=== PATIENT | female | born 1950 | race Caucasian/White ===

== ENCOUNTER → 2020-10-31 | Outpatient (CLI) | payer BC ==
--- NOTE | 2020-11-01 12:51 | RAD ---
DATE: 10/31/2020 3:30 PM EXAM: DIGITAL SCREEN BILAT W/CAD HISTORY: Screening COMPARISON: 07/30/2017 Bilateral full field craniocaudal and mediolateral oblique images were obtained using digital technique. This study was interpreted with the benefit of Computerized Aided Detection (CAD). FINDINGS: Breast Density: DENSE The breast Parenchyma is dense, which could reduce the sensitivity of mammography. Breast parenchyma level density D. No suspicious masses, microcalcifications or architectural distortion is present to suggest malignancy in either breast. The visualized axillae are unremarkable. IMPRESSION: No mammographic evidence of malignancy. BI-RADS CATEGORY: 1 NEGATIVE RECOMMENDED FOLLOW-UP: 12M 12 MONTH FOLLOW-UP Annual screening mammography is recommended, unless clinically indicated sooner based on symptoms or change in physical exam. PQRS compliance statement: Patient information was entered into a reminder system with a target due date for the next mammogram. Mammography is a sensitive method for finding small breast cancers, but it does not detect them all and is not a substitute for careful clinical examination. A negative mammogram does not negate a clinically suspicious finding and should not result in delay in biopsying a clinically suspicious abnormality. "Our facility is accredited by the [employer] Mammography Program."
== END ==
LOC: MAMMO 15:22
PROVIDERS: ATTEND Nurse Practitioner Adult Health
DX: Z12.31 Encounter for screening mammogram for malignant neoplasm of breast (principal)
CPT/HCPCS: 77067

== ENCOUNTER 2021-10-03 06:44 | Emergency (ER) | payer BC, MEDICARE ==
[~2021-10-03] VITALS: Ht 198.1 cm; Wt 65.4 kg
--- NOTE | 2021-10-03 07:17 | PHYS DOC ---
Past History Past Surgical History: Cholecystectomy Alcohol Use: Occasionally General Adult EDM: Chief Complaint: BACK PAIN - NO INJURY HPI: HPI: Patient is a 71-year-old female coming in for left thoracic back pain. Patient states the pain radiates through to the front. Patient states the pain started 1.5 days ago. Denies any falls or injuries, does state that she had tried to restrain her 6-year-old granddaughter when she was acting up 2 days ago but the pain did not start immediately after that. Patient states she was in the couch and the pain started. He was this morning because she had difficulty sleeping secondary to pain. Denies any other symptoms. Denies any history of kidney stones or infections. No recent illness, no fevers or chills. Tried taking Aleve for the pain without much improvement. Review of Systems: Review of Systems: All other systems within normal limits except for as noted in the HPI Allergies: Allergies: Allergies Coded Allergies Type Severity Reaction Last Updated Verified No Known Drug Allergies 10/03/21 No Physical Exam: PE: Constitutional: Well developed, well nourished, no acute distress, non-toxic appearance. [] HENT: Normocephalic, atraumatic, bilateral external ears normal, nose normal. [] Eyes: PERRLA, conjunctiva normal, no discharge. [] Neck: No rigidity, supple, no stridor. [] Cardiovascular: Regular rate and rhythm, brisk cap refill [] Lungs & Thorax: Non labored symmetric respirations, no tachypnea or respiratory distress [] Abdomen: Soft, nondistended. Skin: Warm, dry, no erythema, no rash. [] Back: Unremarkable, no step-off or deformity, no point tenderness on spine. Left thoracic tenderness not really changed with palpation just below scapula. Extremities: No deformities, range of motion grossly intact, no lower extremity edema [] Neurologic: Alert and oriented X 3, no focal deficits noted. [] Psychologic: Affect normal, judgement normal, mood normal. [] Current Patient Data: Vital Signs: Vital Signs Date Time Temp Pulse Resp B/P (MAP) Pulse Ox O2 Delivery O2 Flow Rate FiO2 10/03/21 07:02 97.6 60 18 143/80 (101) 100 Room Air EKG: EKG: [] Radiology/Procedures: Radiology/Procedures: [address] [address] IMAGING REPORT Signed PATIENT: SON MAK ACCOUNT: [id number] : 1950 LOCATION: ER AGE: 71 SEX: F EXAM STATUS: REG ER ORD. PHYSICIAN: BEE LEDBETTER MD REASON: LUQ pain PROCEDURE: CT ANGIO CHEST ABD PELVIS STUDY: CT angiography chest abdomen and pelvis INDICATION: Left upper quadrant pain COMPARISON: None TECHNIQUE: Helical CT angiography of the chest, abdomen and pelvis after administration of intravenous contrast in aortic phase. Multiplanar reconstructions were obtained to include 3D MIP reconstructions. One or more of the following individualized dose reduction techniques were utilized for this examination: 1. Automated exposure control 2. Adjustment of the mA and/or kV according to patient size 3. Use of iterative reconstruction technique. FINDINGS: Vasculature: No aortic aneurysm or dissection. No significant atherosclerosis. The arch vessel origins and abdominal aortic branch origins are all widely patent. Iliac arteries are normal in caliber and patent. CHEST: Heart is normal in size. Pulmonary arteries are clear. No lymphadenopathy. There is a 5 mm nodule in the right middle lobe (image 66, series 4). A calcified granuloma in the left lung. The lungs are otherwise clear. There is no pleural effusion or pneumothorax. The thyroid gland is normal. No acute osseous abnormality. Abdomen and pelvis: The liver, spleen, and adrenal glands are normal. The gallbladder surgically absent. There is dilation of the common bile duct measuring 8 mm, likely related to cholecystectomy and age. There is mild diffuse pancreatic atrophy. Main pancreatic duct is prominent. Kidneys, ureters, and bladder are normal. The stomach, small bowel, colon, and appendix are normal. No free fluid or free air. No lymphadenopathy. Uterus is surgically absent. No acute osseous abnormality in the abdomen and pelvis. IMPRESSION: 1. No aortic aneurysm or dissection. 2. No acute abnormality in the chest, abdomen, or pelvis. 3. 5 mm nodule in the right lower lobe. The patient is at high risk for lung cancer, an optional follow-up CT could be obtained in 12 months to ensure stability. Electronically signed by: Bee Hussein MD (10/03/2021 11:24 AM) [id number] DICTATED AND SIGNED BY: BEE HUSSEIN MD DATE: 10/03/21 1106 CC: BEE LEDBETTER MD; GUILLAUME CURTIS MD ~MTH0 0 [] Heart Score: C/O Chest Pain: No Risk Factors: Risk Factors: DM, Current or recent (<one month) smoker, HTN, HLP, family history of CAD, obesity. Risk Scores: Score 0 - 3: 2.5% MACE over next 6 weeks - Discharge Home Score 4 - 6: 20.3% MACE over next 6 weeks - Admit for Clinical Observation Score 7 - 10: 72.7% MACE over next 6 weeks - Early Invasive Strategies Course & Med Decision Making: Course & Med Decision Making Pertinent Labs and Imaging studies reviewed. (See chart for details) Small amount of blood in urine, work-up unremarkable for any significant pathology. Will treat pain symptoms and have patient follow-up with her primary care provider [] Braden Disclaimer: Dragbharat Disclaimer: This electronic medical record was generated, in whole or in part, using a voice recognition dictation system. Departure Departure: Impression: Primary Impression: Back pain Disposition: HOME / SELF CARE / HOMELESS Condition: STABLE Referrals: GUILLAUME CURTIS MD (PCP) Patient Instructions: Back Pain, Adult Scripts Cyclobenzaprine Hcl (CYCLOBENZAPRINE HCL) 5 Mg Tablet 1 TAB PO PRN TID PRN for MUSCLE PAIN for 5 Days, #15 TAB Prov: BEE LEDBETTER MD 10/03/21 Meloxicam (MELOXICAM) 15 Mg Tablet 1 TAB PO DAILY PRN for PAIN for 15 Days, #15 TAB 0 Refills Prov: BEE LEDBETTER MD 10/03/21 BEE LEDBETTER MD Oct 03, 2021 07:17
[2021-10-03 07:48] LABS: BASO % 2 % (0-3); EOS # 0.1 x10^3/uL (0.0-0.7); EOS % 3 % (0-3); HEMATOCRIT 36.8 % (36.0-47.0); HEMOGLOBIN 12.1 g/dL (12.0-15.5); LYMPH % 31 % (24-48); MEAN CORPUSCULAR HEMOGLOBIN 30 pg (25-35); MEAN CORPUSCULAR HGB CONC 33 g/dL (31-37); MEAN CORPUSCULAR VOLUME 91 fL (79-100); MONO # 0.2 x10^3/uL (0.0-1.1); MONO % 7 % (0-9); NEUT % 59 % (31-73); PLATELET COUNT 179 x10^3/uL (140-400); RED BLOOD COUNT 4.05 x10^6/uL (3.50-5.40); RED CELL DISTRIBUTION WIDTH 13.5 % (11.5-14.5); WHITE BLOOD COUNT 3.4 x10^3/uL (4.0-11.0)
[2021-10-03 07:57] LABS: BACTERIA,URINE 0 /HPF (0-FEW); CLARITY,URINE CLEAR; COLOR,URINE YELLOW; GLUCOSE,URINE NEG (NEG); NITRITE,URINE NEG (NEG); SQUAMOUS EPITHELIAL CELL,UR FEW /LPF; UROBILINOGEN,URINE 0.2 mg/dL (0.2 mg/dL)
[2021-10-03 08:21] LABS: CALCIUM 8.7 mg/dL (8.5-10.1); CREATININE 0.7 mg/dL (0.6-1.0); POTASSIUM 3.9 mmol/L (3.5-5.1)
[2021-10-03 08:27] LABS: ALBUMIN 3.9 g/dL (3.4-5.0); ALBUMIN/GLOBULIN RATIO 1.5 (1.0-1.7); TOTAL BILIRUBIN 0.6 mg/dL (0.2-1.0); TOTAL PROTEIN 6.5 g/dL (6.4-8.2)
[2021-10-03] MEDS ORDERED: CONTRAST GIVEN. MC PRN (08:45)
[2021-10-03] MEDS ORDERED: IOHEXOL 350 MG/ML 100 ML VIAL. IV ONE (08:45)
[2021-10-03] MEDS ORDERED: CYCL5TAB PO (11:21)
[2021-10-03] MEDS ORDERED: MELO15TA23 PO (11:21)
--- NOTE | 2021-10-03 11:26 | RAD ---
STUDY: CT angiography chest abdomen and pelvis INDICATION: Left upper quadrant pain COMPARISON: None TECHNIQUE: Helical CT angiography of the chest, abdomen and pelvis after administration of intravenou s contrast in aortic phase. Multiplanar reconstructions were obtained to include 3D MIP reconstructio ns. One or more of the following individualized dose reduction techniques were utilized for this examinat ion: 1. Automated exposure control 2. Adjustment of the mA and/or kV according to patient size 3. Use of iterative reconstruction technique. FINDINGS: Vasculature: No aortic aneurysm or dissection. No significant atherosclerosis. The arch vessel origin s and abdominal aortic branch origins are all widely patent. Iliac arteries are normal in caliber and patent. CHEST: Heart is normal in size. Pulmonary arteries are clear. No lymphadenopathy. There is a 5 mm nod ule in the right middle lobe (image 66, series 4). A calcified granuloma in the left lung. The lungs are otherwise clear. There is no pleural effusion or pneumothorax. The thyroid gland is normal. No ac elem osseous abnormality. Abdomen and pelvis: The liver, spleen, and adrenal glands are normal. The gallbladder surgically abse nt. There is dilation of the common bile duct measuring 8 mm, likely related to cholecystectomy and a ge. There is mild diffuse pancreatic atrophy. Main pancreatic duct is prominent. Kidneys, ureters, an d bladder are normal. The stomach, small bowel, colon, and appendix are normal. No free fluid or free air. No lymphadenopathy. Uterus is surgically absent. No acute osseous abnormality in the abdomen an d pelvis. IMPRESSION: 1. No aortic aneurysm or dissection. 2. No acute abnormality in the chest, abdomen, or pelvis. 3. 5 mm nodule in the right lower lobe. The patient is at high risk for lung cancer, an optional foll ow-up CT could be obtained in 12 months to ensure stability. Electronically signed by: Bee Hussein MD (10/03/2021 11:24 AM) [id number]
[2021-10-03] MEDS ORDERED: KETOROLAC 15 MG/ML VIAL. IVP ONE (11:30)
[2021-10-03 11:50] VITALS: BP 137/77
== END 2021-10-03 11:55 | disposition home or self-care (01) ==
LOC: ER 06:44
DX: M54.6 Pain in thoracic spine (principal); Z90.49 Acquired absence of other specified parts of digestive tract
CPT/HCPCS: 36415; 71275; 74174; 74175; 80053; 81001; 83690; 84484; 85025; 85379; 87086; 96374; 99285; J1885; Q9967